=== PATIENT | female | born 1975 | race Two or more races ===

== ENCOUNTER → 2024-06-26 | Outpatient (CLI) | payer OTHER, SELFPAY ==
--- NOTE | 2024-06-26 09:30 | XR_ITS ---
Examination: Abdomen sonogram, complete Date and time of exam: June 26, 2024 1004 hours INDICATIONS: Diagnosis morbid obesity. Technique: Multiple real-time grayscale transabdominal sonographic images of the abdomen have been obtained. Findings: Normal gallbladder Normal common bile duct 0.4 cm Pancreatic head 2.1 cm Aorta not enlarged Liver 14.5 cm irregular contour fatty liver Normal hepatopedal portal venous flow Patent IVC Right kidney 9.4 x 4.6 x 5.4 cm cortex 1.2 cm Left kidney 10.5 x 5.2 x 4.9 cm cortex 1.6 cm Mild renal parenchymal scar formation Spleen 12.2 cm IMPRESSION: Normal gallbladder Fatty liver, suspect primary hepatocellular disease Bilateral renal cortical thinning Mild bilateral renal parenchymal scar formation No hydronephrosis
--- NOTE | 2024-06-26 09:46 | XR_ITS ---
Examination: Esophagram standard Upright PA chest single view Upright soft tissue lateral neck single view Fluoroscopy 14 spot fluoroscopic films of the esophagus Exam date and time: June 26, 2024 1021 hours INDICATIONS: Diagnosis hilar hernia 8 years ago, preop bariatric surgery TECHNIQUE AND FINDINGS: Upright PA chest single view demonstrates normal heart size, lungs are clear Upright soft tissue lateral neck demonstrates normal epiglottis minimal cervical spondylosis Patient swallowed thin barium with 14 spot films of the esophagus obtained Primary peristaltic esophageal waves Moderate sliding esophageal hernia Mild intermittent gastroesophageal reflux. No stricture at the gastroesophageal junction Fluoroscopy 0.16 minutes IMPRESSION: Moderate sliding esophageal hernia Mild intermittent gastroesophageal reflux There is no stricture at the gastroesophageal junction
== END | disposition home or self-care (01) ==
PROVIDERS: PCP Surgery; Referring Provider Surgery; Visit Provider Surgery
DX: K76.0 Fatty (change of) liver, not elsewhere classified (principal); N28.89 Other specified disorders of kidney and ureter; K21.9 Gastro-esophageal reflux disease without esophagitis; K44.9 Diaphragmatic hernia without obstruction or gangrene
CPT/HCPCS: 74220; 76700